=== PATIENT | male | born 1960 ===

== ENCOUNTER 2024-11-13 06:21 | Day surgery (SDC) | payer OTHER ==
[2024-11-10 08:34] VITALS: BP 129/86
[~2024-11-13] VITALS: Ht 172.7 cm; Wt 100.7 kg
[~2024-11-13 06:21] MED LIST: COZAAR100 MG PO; FARXIGA10 MG PO; HORIZANT300 MG PO; HYDROCHLOROTHIA25 MG PO; NIFE60TA3 PO; TOPROL XL100 M1 PO; ZOCOR20 MG PO
[2024-11-13] MEDS ORDERED: GABAPENTIN100 M2 (08:35)
[2024-11-13] MEDS ORDERED: DEXAMETHASONE SODIUM PHOSPHATE 4 MG/ML VIAL ONE (09:32)
[2024-11-13] MEDS ORDERED: CEFAZOLIN SODIUM 1,000 MG VIAL ONE ×2 (09:33→09:59)
== END 2024-11-13 16:05 | disposition home or self-care (01) ==
LOC: CIR.AMB 06:21 → O/R 06:21 → SURH 06:21 → EDSTATUS 08:45 → SURH 08:45 → O/R 11:48 → CIR.AMB 16:05
PROVIDERS: ATTEND Surgery
DX: E21.0 Primary hyperparathyroidism (principal); Z88.8 Allergy status to other drugs, medicaments and biological substances